=== PATIENT | male | born 1950 | race Caucasian/White ===

== ENCOUNTER 2020-05-19 13:28 | Outpatient (REF) | payer OTHER, SELFPAY ==
[2020-05-19 14:16] LABS: ALT 31 U/L (16-63); AST 49 U/L (15-37); Albumin 4.2 g/dL (3.4-5.0); Alkaline Phosphatase 82 U/L (46-116); Anion Gap 7.5 mmol/L (3-11); BUN 12 mg/dL (7-18); Bilirubin, Total 0.9 mg/dL (0.2-1.0); CO2 28.5 mmol/L (21.0-32.0); CREATININE 1.26 mg/dL (0.70-1.30); Calcium 8.7 mg/dL (8.5-10.1); Calculated LDL 92 mg/dL (<100); Chloride 103 mmol/L (98-107); Cholesterol 176 mg/dL (<200); Estimated GFR 57.08 (mL/min/1.73m2); Glucose 103 mg/dL (74-106); HDL Cholesterol 31 mg/dL (40-60); Sodium 139 mmol/L (136-145); Total Protein 7.4 g/dL (6.4-8.2); Triglyceride 269 mg/dL (<150)
== END 2020-05-19 13:48 ==
LOC: NCHCN 13:28
PROVIDERS: Visit Provider Family Medicine
DX: E78.1 Pure hyperglyceridemia (principal); E78.6 Lipoprotein deficiency; Z00.00 Encounter for general adult medical examination without abnormal findings
CPT/HCPCS: 80053; 80061

== ENCOUNTER 2020-10-03 15:26 | Outpatient (REF) | payer OTHER, SELFPAY ==
[2020-10-03 14:22] LABS: ALT 31 U/L (16-63); AST 60 U/L (15-37); Albumin 4.2 g/dL (3.4-5.0); Alkaline Phosphatase 91 U/L (46-116); Bilirubin, Direct 0.3 mg/dL (0.0-0.2); Bilirubin, Total 1.6 mg/dL (0.2-1.0); Total Protein 7.5 g/dL (6.4-8.2)
[2020-10-03 14:33] LABS: Calculated LDL 115 mg/dL (<100); Cholesterol 194 mg/dL (<200); HDL Cholesterol 38 mg/dL (40-60); Triglyceride 205 mg/dL (<150)
== END 2020-10-03 15:27 | disposition home or self-care (01) ==
LOC: NCHCN 15:26
PROVIDERS: Visit Provider Family Medicine
DX: R74.01 Elevation of levels of liver transaminase levels (principal); E78.1 Pure hyperglyceridemia; E78.6 Lipoprotein deficiency
CPT/HCPCS: 80061; 80076

== ENCOUNTER 2020-10-14 16:06 | Outpatient (REF) | payer OTHER, SELFPAY ==
[2020-10-14 20:46] LABS: ALT 27 U/L (16-63); AST 52 U/L (15-37); Albumin 4.1 g/dL (3.4-5.0); Alkaline Phosphatase 97 U/L (46-116); Bilirubin, Direct 0.2 mg/dL (0.0-0.2); Bilirubin, Total 0.9 mg/dL (0.2-1.0); Total Protein 7.5 g/dL (6.4-8.2)
== END 2020-10-14 16:07 | disposition home or self-care (01) ==
LOC: NCHCN 16:06
PROVIDERS: Visit Provider Family Medicine
DX: R74.01 Elevation of levels of liver transaminase levels (principal)
CPT/HCPCS: 80076

== ENCOUNTER 2021-06-06 14:58 | Outpatient (REF) | payer OTHER, SELFPAY ==
[2021-06-06 15:01] LABS: Hemoglobin A1C 5.6 % (<5.7)
[2021-06-06 15:04] LABS: ALT 28 U/L (16-63); AST 44 U/L (15-37); Albumin 4.1 g/dL (3.4-5.0); Alkaline Phosphatase 93 U/L (46-116); BUN 13 mg/dL (7-18); Bilirubin, Total 0.7 mg/dL (0.2-1.0); CREATININE 1.2 mg/dL (0.70-1.30); Calcium 8.9 mg/dL (8.5-10.1); Calculated LDL 119 mg/dL (<100); Chloride 105 mmol/L (98-107); Cholesterol 216 mg/dL (<200); Glucose 116 mg/dL (74-106); HDL Cholesterol 38 mg/dL (40-60); Sodium 141 mmol/L (136-145); Total Protein 7.6 g/dL (6.4-8.2); Triglyceride 297 mg/dL (<150)
== END 2021-06-06 14:59 | disposition home or self-care (01) ==
LOC: NCHCN 14:58
PROVIDERS: Visit Provider Family Medicine
DX: R74.01 Elevation of levels of liver transaminase levels (principal); R73.01 Impaired fasting glucose
CPT/HCPCS: 80053; 80061; 83036

== ENCOUNTER 2021-10-13 13:40 | Outpatient (REF) | payer MEDICARE, SELFPAY ==
[2021-10-13 20:23] LABS: HCT 43.1 % (40.0-50.0); HGB 15.2 g/dL (13.5-17.5); MCH 33.9 pg (27.0-33.0); MCHC 35.3 % (32.0-36.0); MCV 96 fL (80-95); MPV 10.2 fL (8.0-11.0); Platelet Count 222 10^3/uL (130-400); RBC 4.48 10^6/uL (4.36-5.78); RDW 12.3 % (11.8-14.1); RDW-SD 43.6 fL; WBC 6.12 10^3/uL (4.4-10.8)
[2021-10-13 20:25] LABS: ALT 20 U/L (16-63); AST 38 U/L (15-37); Albumin 4.4 g/dL (3.4-5.0); Alkaline Phosphatase 91 U/L (46-116); Anion Gap 7.4 mmol/L (3-11); BUN 17 mg/dL (7-18); Bilirubin, Total 0.9 mg/dL (0.2-1.0); CO2 28.6 mmol/L (21.0-32.0); CREATININE 1.4 mg/dL (0.70-1.30); Calcium 8.7 mg/dL (8.5-10.1); Chloride 104 mmol/L (98-107); Estimated GFR 50.25 (mL/min/1.73m2); Glucose 130 mg/dL (74-106); Potassium 4.1 mmol/L (3.5-5.1); Sodium 140 mmol/L (136-145); Total Protein 7.3 g/dL (6.4-8.2)
[2021-10-17 19:06] LABS: Folate 13.4 ng/mL (See Note); Vitamin B12 273 pg/mL (211-911)
== END 2021-10-13 13:41 | disposition home or self-care (01) ==
LOC: NCHCN 13:40
PROVIDERS: PCP Family Medicine; Visit Provider Family Medicine
DX: K76.0 Fatty (change of) liver, not elsewhere classified (principal)
CPT/HCPCS: 80053; 85027; 82607; 82746

== ENCOUNTER 2022-01-29 11:53 | Outpatient (REF) | payer MEDICARE, SELFPAY ==
[2022-01-29 15:15] LABS: ALT 36 U/L (16-63); AST 50 U/L (15-37); Albumin 4.3 g/dL (3.4-5.0); Alkaline Phosphatase 79 U/L (46-116); Anion Gap 5.2 mmol/L (3-11); BUN 11 mg/dL (7-18); Bilirubin, Total 1.6 mg/dL (0.2-1.0); CO2 30.8 mmol/L (21.0-32.0); CREATININE 1.2 mg/dL (0.70-1.30); Calcium 9.2 mg/dL (8.5-10.1); Calculated LDL 112 mg/dL (<100); Chloride 103 mmol/L (98-107); Cholesterol 189 mg/dL (<200); Estimated GFR 65.46 (mL/min/1.73m2); Glucose 101 mg/dL (74-106); HDL Cholesterol 38 mg/dL (40-60); Potassium 4.3 mmol/L (3.5-5.1); Sodium 139 mmol/L (136-145); Total Protein 7.5 g/dL (6.4-8.2); Triglyceride 196 mg/dL (<150); Vitamin B12 319 pg/mL (193-986)
== END 2022-01-29 11:54 | disposition home or self-care (01) ==
LOC: NCHCN 11:53
PROVIDERS: PCP Family Medicine; Visit Provider Family Medicine
DX: E53.8 Deficiency of other specified B group vitamins (principal); R74.01 Elevation of levels of liver transaminase levels; F10.10 Alcohol abuse, uncomplicated; E78.1 Pure hyperglyceridemia; E78.6 Lipoprotein deficiency
CPT/HCPCS: 80053; 80061; 82607

== ENCOUNTER 2022-06-07 15:49 | Outpatient (REF) | payer MEDICARE, SELFPAY ==
[2022-06-07 15:06] LABS: HCT 44.4 % (40.0-50.0); HGB 15.2 g/dL (13.5-17.5); MCH 32.6 pg (27.0-33.0); MCHC 34.2 % (32.0-36.0); MCV 95 fL (80-95); MPV 9.7 fL (8.0-11.0); Platelet Count 219 10^3/uL (130-400); RBC 4.66 10^6/uL (4.36-5.78); RDW 12.3 % (11.8-14.1); RDW-SD 43.2 fL; WBC 5.84 10^3/uL (4.4-10.8)
[2022-06-07 15:29] LABS: ALT 40 U/L (16-63); AST 61 U/L (15-37); Albumin 4.2 g/dL (3.4-5.0); Alkaline Phosphatase 82 U/L (46-116); BUN 12 mg/dL (7-18); CREATININE 1.4 mg/dL (0.70-1.30); Calcium 9.1 mg/dL (8.5-10.1); Chloride 106 mmol/L (98-107); Estimated GFR 54.41 (mL/min/1.73m2); Glucose 113 mg/dL (74-106); Potassium 4.1 mmol/L (3.5-5.1); Sodium 141 mmol/L (136-145); Total Protein 7.7 g/dL (6.4-8.2)
== END 2022-06-07 15:50 | disposition home or self-care (01) ==
LOC: NCHCN 15:49
PROVIDERS: PCP Family Medicine; Visit Provider Family Medicine
DX: K76.0 Fatty (change of) liver, not elsewhere classified (principal)
CPT/HCPCS: 80053; 85027

== ENCOUNTER 2023-04-04 16:03 | Outpatient (REF) | payer MEDICARE, SELFPAY ==
--- OUTSIDE RECORDS SUMMARY | 2023-04-04 16:05 | XMS_ITS | CCD ---
Author Name Unknown Address [address] [place] [address] [phone] Organization Unknown Address [address] [place], [place] [id number] Care Team Providers Care Railroad Car Repairman Name Role Phone WILLOW NEWTON Attending Physician [phone] Vital Signs Unknown or Not Available. Allergies Unknown or Not Available. Procedures Unknown or Not Available. History of Immunizations Unknown or Not Available. Problems Unknown or Not Available. Results Unknown or Not Available. Active Medications Unknown or Not Available. Medications Administered During Visit Unknown or Not Available. Encounters Encounter Diagnosis Diagnosis Code Start Date Fatty (change of) liver, not elsewhere clintifsmiley thomas [id number] 08/16/2021 Social History Smoking Status Code Start Date End Date Never smoker [id number] Patient Decision Aids Unknown or Not Available. Discharge Instructions You were admitted to [facility] on 08/16/2021 10:32 with a principal diagnosis of Fatty (change of) liver, not elsewhere classified You were discharged from [facility] on 08/16/2021 10:32 Should you have any questions prior to discharge, please contact a member of your healthcare team. If you have left the hospital and have any questions, please contact your primary care physician. Chief Complaint and Reason For Visit Unknown or Not Available. Function Status Unknown or Not Available. Plan of Care Unknown or Not Available. Referral/Transition of Care Unknown or Not Available.
[2023-04-04 21:31] LABS: ALT 28 U/L (16-63); AST 46 U/L (15-37); Alkaline Phosphatase 89 U/L (46-116); Anion Gap 6.9 mmol/L (3-11); BUN 11 mg/dL (7-18); Bilirubin, Total 0.9 mg/dL (0.2-1.0); CO2 28.1 mmol/L (21.0-32.0); CREATININE 1.2 mg/dL (0.70-1.30); Calcium 8.9 mg/dL (8.5-10.1); Calculated LDL 78 mg/dL (<100); Chloride 104 mmol/L (98-107); Cholesterol 179 mg/dL (<200); Estimated GFR 65.06 (mL/min/1.73m2); Glucose 97 mg/dL (74-106); HDL Cholesterol 33 mg/dL (40-60); Potassium 4.5 mmol/L (3.5-5.1); Sodium 139 mmol/L (136-145); Total Protein 7.8 g/dL (6.4-8.2); Triglyceride 340 mg/dL (<150)
== END 2023-04-04 16:04 | disposition home or self-care (01) ==
LOC: NCHCN 16:03
PROVIDERS: PCP Family Medicine; Visit Provider Family Medicine
DX: E78.6 Lipoprotein deficiency (principal); K76.0 Fatty (change of) liver, not elsewhere classified
CPT/HCPCS: 80053; 80061

== ENCOUNTER 2024-05-01 17:28 | Outpatient (REF) | payer MEDICARE, SELFPAY ==
--- OUTSIDE RECORDS SUMMARY | 2024-05-01 17:33 | XMS_ITS | Referral Summary ---
Author Organization [facility] Address [address] [place] [address] Care Team Providers Care Math And Sciences Department Chair Name Role Phone Daryn Garcia MD Primary Care Provide r Allergies No known active allergies Medications No known medications Active Problems Problem Noted Date Diagnosed Date Screening for colon cancer Social History Tobacco Use Types Packs/Day Years Used Date Smoking Tobacco: Never Smokeless Tobacco: Never Tobacco Cessation:Counseling Given: Not Answered Alcohol Use Standard Drinks/Week Comments Yes 14 (1 standard drink = 0.6 oz pu re alcohol) Sex and Gender Information Value Date Recorded Sex Assigned at Not on file Legal Sex Male 10:41 EDT Gender Identity Not on file Sexual Orientation Not on file Last Filed Vital Signs Vital Sign Reading Time Taken Comments Blood Pressure 141/86 12/18/2022 1221 EDT Pulse 65 12/18/2022 1221 EDT Temperature 36.4 ??C (97.6 ??F) 12/18/2022 1221 EDT Respiratory Rate 18 12/18/2022 1225 EDT Oxygen Saturation 99% 12/18/2022 1225 EDT Inhaled Oxygen Concentration - - Weight 90.7 kg (200 lb) 12/18/2022 0952 EDT Height 177.8 cm (5' 10) 12/18/2022 0952 EDT Body Mass Index 28.7 12/18/2022 0952 EDT Plan of Treatment Not on file Procedures Procedure Name Priority Date/Time Associated Diagnosis Comments COLONOSCOPY Routine 12/18/2022 10:15 EDT Screening for colon cancer from Last 3 Months or Most Recently Relevant to Health Maintenance Results * COLONOSCOPY (12/18/2022 10:15 EDT) Anatomical Region Laterality Modality Endoscopy Narrative 12/18/2022 10:15 EDT [facility] ?? [address] [place], [place] [address] ?? Patient Name ?JOSE BEARD Date of ?1950 Record Number ?[id number] Date/Time of Procedure ?12/18/2022, 10:15:00 AM Endoscopist ?Magdalene Ramos ?? Pbx Supervisor ? Referring Physician(s) ?? Daryn Garcia M.D. Anesthesiologist ?Jcarlos Rolbes Procedure Performed: COLONOSCOPY - Cold snare polypectomy Indications for Exam: Screening Colonoscopy. Instruments: ? [facility]-[id number] ([id number]) Medications: ?I was in continuous face to face attendance during the administration of moderate sedation services that were monitored by an independent trained observer who had no other duties during the procedure. Per Anesthesia ? Visualization: ? Good ?Tolerance: Good ?Complications: None ? Extent of Exam: ?cecum ? Limitations: ?None Procedure Technique: A physical exam was performed. Informed consent was obtained from the patient after explaining all the risks (perforation, bleeding, infection and adverse effects to the medicine) , benefits and alternatives to the procedure which the patient appeared to understand and so stated. The patient was connected to monitoring devices and placed in the left lateral postion, continuous oxygen was provided with a nasal cannula. IV medications were administered by an Anesthesiologist through indwelling cannula. After anesthesia was achieved a digital exam was performed and ??the colonoscope was introduced into the rectum and advanced under direct visualzation to the cecum. The ??was identified by visual landmarks .The scope was subsequently removed slowly while carefully examining the color, texture, anatomy, and integrity of the mucosa on the way out. The patient was subsequently transferred to the recovery area in satisfactory condition. The following procedure was performed and findings noted: Findings: Normal rectal exam. ??Normal colon mucosa with scattered diverticulosis. ??Two polyps found in the cecum and removed with a snare, no cautery. ??Lastly another polyp found at the splenic flexure and removed similarily. Endoscopic Diagnosis: Colon polyps Recommendations: Repeat colonoscopy in 5 years if polyps are adenomatous, 10 years if hyperplastic.. Sedation Start: 11:15:05 AM ?? Sedation End: 11:46:14 AM Signature: Mason MilanCiNkolas This note was electronically signed on 12/18/2022 11:50:58 AM By Magdalene DixonCNikolas Daryn Garcia MD GI PROCEDURE ORDERABL ES Final Result from Last 3 Months or Most Recently Relevant to Health Maintenance Insurance [employer] MEDICARE [employer] MEDICARE Care Teams Math And Sciences Department Chair Relationship Specialty Start Date End Date Daryn Garcia MD [address] [facility] [address] [place] [address] PCP - General 10/05/22
--- OUTSIDE RECORDS SUMMARY | 2024-05-01 17:33 | XMS_ITS | Encounter Summary ---
Author Organization [facility] Address [address] [place] [address] Care Team Providers Care Grill Associate Name Role Phone Yamel Garcia MD Primary Care Provide r Reason for Visit * Auth/Cert (Routine) Specialty Diagnoses / Procedures Referred By Boy serrano Referred To Contact Referral ID Status Reason Start Date Expiration Date Visits Re quested Visits Authorized [id number] 1 1 Encounter Details Date Type Department Care Team (Late st Contact Info) Description 12/18/2022 11:10 EDT Anesthesia Event [facility] Endoscopy [address] [place], [place] [id number] Meliton Robles MD [address] [place] [address] Anesthesia Record Procedure Summary Procedure Name Responsible Anesthesiologist Anesthesia Start Time Anesthesia Stop Time COLONOSCOPY Meliton Robles MD 12/18/22 1110 11/28 06/21 1150 Events Date Time Event Comment 12/18/2022 1110 An Start The patient was re-evaluated immediately before moderate or deep sedation use, before anesthesia induction, or before the anesthesia procedure. 1110 An Start Data 1111 Anesthesia Ready 1146 an stop data 1150 Handoff to RN I completed my handoff to the receiving nurse during which we: 1. Identified the patient 2. Identified the responsible provider 3. Reviewed the pertinent medical history 4. Discussed the surgical course 5. Reviewed intra-op anesthesia management and issues during anesthesia 6. Set expectations for post-procedure period 7. Allowed opportunity for questions and acknowledgement of understanding. 1150 An Stop Meds Name Total ketAMINE 10 mg/mL vial 20 mg lidocaine 2% (PF) injection glass vial 5 0 mg midazolam 1 mg/mL 2 mL vial 2 mg propOFol (DIPRIVAN) injection 100 mg * Agents No agents on file. * Blood No blood administrations on file. Lines, Drains, and Airways Type Details Placement Removal Peripheral IV 12/18/22; 1007; 20; Posterior, Right; Hand; Inserted by RN; 1; None; 2% Chlorhexidine with IPA; 12/18/22; 1231; Discharged; No complications, Dressing applied, Catheter intact 12/18/22 1007 by Ailyn Beck RN 12/18/22 1231 by Laureen Early, EL documented in this encounter Social History Tobacco Use Types Packs/Day Years Used Date Smoking Tobacco: Never Smokeless Tobacco: Never Alcohol Use Standard Drinks/Week Comments Yes 14 (1 standard drink = 0.6 oz pu re alcohol) Sex and Gender Information Value Date Recorded Sex Assigned at Not on file Legal Sex Male 10:41 EDT Gender Identity Not on file Sexual Orientation Not on file documented as of this encounter OR Notes * Anesthesia Postprocedure Evaluation - Meliton Robles MD - 12/18/2022 1150 EDT Patient: Raciel Beard Vital signs were reviewed with the recovery nurse. Complete vitals history is available in the Epicflowsheets. Vitals Value Taken Time BP 12/18/22 1150 Temp 12/18/22 1150 Resp 12/18/22 1150 Pulse From Oximetry 12/18/22 1150 SpO2 12/18/22 1150 Heart Rate 12/18/22 1150 Last Pain Score - Numeric Pain Level (Scale 1-10): 0 Type of Anesthesia - MAC Anesthesia Post Evaluation Post-procedure vitals reviewed and are stable. Level of consciousness: awake Temperature status: normothermia Respiratory status: airway patent Cardiovascular status: acceptable Hydration status: adequate Nausea/Vomiting: none Pain management: adequate Post-Op Assessment: patient tolerated procedure well with no complications and patient satisfied with anesthesia care Patient participation: able to participate Disposition: outpatient/home Anesthesia Complications: No apparent anesthesia complications * Anesthesia Preprocedure Evaluation - Meliton Robles MD - 12/18/2022 0941 EDT Anesthesia Preprocedure Evaluation Patient Medical History, including Anesthesia History reviewed. Chart and Nursing Notes reviewed, including NPO status and Medication History. Additional ROS/History Findings: No current outpatient medications on file prior to encounter. No current facility-administered medications on file prior to encounter. No current outpatient medications on file. No current facility-administered medications for this encounter. Not on File No past medical history on file. Relevant Problems No relevant active problems No past surgical history on file. Past Anesthetics [x] None on file []No family history of allergic reactions to anesthesia Review of Systems SOCIAL HISTORY: Social History Tobacco Use Smoking Status Not on file Smokeless Tobacco Not on file Social History Substance and Sexual Activity Drug Use Not on file Social History Substance and Sexual Activity Alcohol Use Not on file No results found for: WBC, HGB, HCT, MCV, PLT No results found for: NA, K, KEXT, CL, CLEXT, CO2, CO2EXT No results found for: BUN No results found for: CREATININE, CREATININEEX No results found for: INR, PROTIME No results found for: PTT UPT: No results found for: PREGUR, PREGNANCYTE, HCGPREG COVID: [] None on file No results found for: COVIDUV Blood Type: No results found for: ABO, LABRH, LABANTI, SPECEXP EKG: [] N/A ECHO: [] N/A Cardiac Stress: [] N/A There were no vitals taken for this visit. Physical Exam Airway Mallampati: II TM distance: <3 FB Neck ROM: full Cardiovascular Rhythm: regular Rate: normal Dental Pulmonary Breath sounds clear to auscultation Abdominal - normal exam Anesthesia Plan ASA 2 Anesthesia Type - MAC Anesthesia plan and risks discussed. Informed consent obtained from patient. The preoperative history and physical which was performed within 30 days of this procedure, has been reviewed and the clinically appropriate elements of the physical examination have been repeated. There are no changes to the documented history and physical or, if so, such changes are documented inthis note documented in this encounter Plan of Treatment Not on file documented as of this encounter Visit Diagnoses Not on filedocumented in this encounter Administered Medications Inactive Administered Medications - up to 3 most recent administrations Medication Order MAR Action Action Date Dose Rate Site ketAMINE (KETALAR) IV injection vial intravenous, PRN, Starting on Sat12/18/22 at 1115, Until Sat12/18/22 at 1150, Routine, Anesthesia Intraprocedure Given 12/18/2022 11:15 EDT 20 mg lidocaine (PF) 20 mg/mL (2 %) injection intravenous, PRN, Starting on Sat12/18/22 at 1115, Until Sat12/18/22 at 1150, Routine, Anesthesia Intraprocedure Given 12/18/2022 11:15 EDT 50 mg midazolam (PF) (VERSED) injection intravenous, PRN, Starting on Sat12/18/22 at 1115, Until Sat12/18/22 at 1150, Routine, Anesthesia Intraprocedure Given 12/18/2022 11:15 EDT 2 mg propOFol (DIPRIVAN) injection intravenous, PRN, Starting on Sat12/18/22 at 1115, Until Sat12/18/22 at 1150, Routine, Anesthesia Intraprocedure Given 12/18/2022 11:42 EDT 20 mg Given 12/18/2022 11:32 EDT 20 mg Given 12/18/2022 11:30 EDT 20 mg documented in this encounter Care Teams Grill Associate Relationship Specialty Start Date End Date Yamel Garcia MD [address] [place] [id number] PCP - General 10/05/22 documented as of this encounter
--- OUTSIDE RECORDS SUMMARY | 2024-05-01 17:33 | XMS_ITS | Encounter Summary ---
Author Organization [facility] Address [address] [place] [address] Care Team Providers Care Management Engineer Name Role Phone Yamel Garcia MD Primary Care Provide r Reason for Visit * Radiology Services (Routine/Next Available) - Authorization Not Required Specialty Diagnoses / Procedures Referred By Conttrinidad serrano Referred To Contact Diagnoses Fatty (change of) liver, not elsewhere classified Procedures US LIVER WITH ELASTOGRAPHY Yamel Garcia MD [address] [place] [phone] Phone: tel: fax: [facility] [place] [facility] Referral ID Status Reason Start Date Expiration Date Visits Requested Visits Authorized [id number] Authorization Not Required 04/05/2023 1 1 Encounter Details Date Type Department Care Team (Latest Contact Info) Description 06/27/2023 8:00 EST - 06/27/2023 23:59 [facility] Hospital Encounter [facility] - [facility] Ultrasound [address] [place] [address] Discharge Disposition: Home or Self Care Social History Tobacco Use Types Packs/Day Years [...] on file documented as of this encounter Discharge Disposition Disposition Code Departure Means Destination Home or Self Care documented in this encounter Plan of Treatment Not on file documented as of this encounter Procedures Procedure Name Priority Date/Time Associated Diagnosis Comments US LIVER WITH ELASTOGRAPHY AND ABDOMEN LIMITED Routine 06/27/2023 8:48 EST Fatty (change of) liver, not elsewhere classified documented in this encounter Results * US LIVER WITH ELASTOGRAPHY AND ABDOMEN LIMITED (06/27/2023 8:48 EST) Anatomical Region Laterality Modality Abdomen, Body Ultrasound 06/27/2023 9:08 EST Addenda Addendum by Reji Andres MD on 07/12/2023 12:57 EDT Addendum: ADDENDUM: MEDICAL NECESSITY FOR LIVER ??ELASTOGRAPHY: ??To evaluate liver stiffness. Rule out compensated advanced chronic liver disease. [id number] Impressions 06/27/2023 9:08 EST Mild diffuse hepatic steatosis. Median hepatic stiffness: 4.62 kPa Liver Stiffness Value and Recommendations: Less than or equal to 5 kPA (1.3 m/s); high probability of being normal [id number] Narrative 06/27/2023 9:08 EST INDICATION: ??Hepatic steatosis w/ elevated LFT's;K76.0:Fatty (change of) liver, not elsewhere classified COMPARISON: None. RIGHT UPPER QUADRANT ULTRASOUND TECHNIQUE: Right upper quadrant abdominal ultrasound was performed with color Doppler imaging. FINDINGS: Pancreas: Visible portion of the pancreas is grossly unremarkable. Liver: Mild hepatic steatosis. No hepatic mass or duct dilatation. Gallbladder: Unremarkable. No stones, wall abnormality or pericholecystic fluid. Common Bile Duct: Normal caliber common bile duct. Right Kidney:Normal. No renal stone, focal renal lesion or hydronephrosis. IVC: Patent.. LIVER ELASTOGRAPHY TECHNIQUE: 11 liver stiffness measurements were obtained using [employer] E9 2D SWE Shear Wave Elastography using a C1-6 abdominal probe following the SRU guidelines. ?? FINDINGS: Median: 4.62 kPa, (1.24 m/sec) E IQR/Median: 12.5% (kPa </= 30%) V IQR/Median: 6.2% (m/s </= 15%) Procedure Note Reji Andres MD - 06/27/2023 INDICATION: Hepatic steatosis w/ elevated LFT's;K76.0:Fatty (change of)liver, not elsewhere classified COMPARISON: None. RIGHT UPPER QUADRANT ULTRASOUND TECHNIQUE: Right upper quadrant abdominal ultrasound was performed withcolor Doppler imaging. FINDINGS: Pancreas: Visible portion of the pancreas is grossly unremarkable. Liver: Mild hepatic steatosis. No hepatic mass or duct dilatation. Gallbladder: Unremarkable. No stones, wall abnormality or pericholecysticfluid. Common Bile Duct: Normal caliber common bile duct. Right Kidney:Normal. No renal stone, focal renal lesion orhydronephrosis. IVC: Patent.. LIVER ELASTOGRAPHY TECHNIQUE: 11 liver stiffness measurements were obtained using [employer] E9 2DSWE Shear Wave Elastography using a C1-6 abdominal probe following the SRUguidelines. FINDINGS: Median: 4.62 kPa, (1.24 m/sec) E IQR/Median: 12.5% (kPa </= 30%) V IQR/Median: 6.2% (m/s </= 15%) IMPRESSION Mild diffuse hepatic steatosis. Median hepatic stiffness: 4.62 kPa Liver Stiffness Value and Recommendations: Less than or equal to 5 kPA(1.3 m/s); high probability of being normal [id number] us Yamel Garcia MD IMG US ORDERABLES Brad cruz Result - Final documented in this encounter Visit Diagnoses Not on filedocumented in this encounter Care Teams Management Engineer Relationship Specialty Start Date End Date Yamel Garcia MD [address] [address] PCP - General 10/05/22 documented as of this encounter
--- OUTSIDE RECORDS SUMMARY | 2024-05-01 17:33 | XMS_ITS | Encounter Summary ---
Author Organization [facility] Address [address] [place] [address] Care Team Providers Care Diagnostic Technician Name Role Phone Yamel Garcia MD Primary Care Provide r Reason for Visit * Reason Onset Date Comments Biopsy Results 12/20/2022 Encounter Details Date Type Department Care Team (Late st Contact Info) Description 12/20/2022 Telephone [facility] - [facility] General Surgery [address] [place] [address] Magdalene Ramos MD [address] [facility] [address] [place] [address] Biopsy Results Social History Tobacco Use Types Packs/Day Years [...] on file documented as of this encounter Miscellaneous Notes * Telephone Encounter - Magdalene Ramos MD - 12/20/2022 0830 EDT Pt's polyps are tubular adenomas, therefore needs a colonoscopy in 5 years. Left message and asked patient to call back to verify receipt of the information. documented in this encounter Plan of Treatment Not on file documented as of this encounter Visit Diagnoses Not on filedocumented in this encounter Care Teams Diagnostic Technician Relationship Specialty Start Date End Date Yamel Garcia MD [address] [facility] [address] [place] [address] PCP - General 10/05/22 documented as of this encounter
--- OUTSIDE RECORDS SUMMARY | 2024-05-01 17:33 | XMS_ITS ---
Author Organization Unknown Address [address] [place] [phone] Phone Care Team Providers Care School Age Teacher Name Role Phone AMAN Shelley Attending Unavailable Results US ABD LIMITED ONE ORGAN - C ompleted: 08/16/2021 12:50 LOINC: RIGHT UPPER QUADRANT ULTRASO UND: There is no ascites. No gallstones nor gallbladder wall edema. Common hepatic duct is not dilated measuring 5-6 mm. Liver is hyperechoic indicating steatosis but there are no discrete focal hepatic lesions. No significant ultrasound findings in the pancreas and right kidney. Abdominal aorta exhibits normal diameter. IVC appears patent. IMPRESSION: 1. No evidence of cholelithiasis nor dilatation of biliary tree. 2. Hepatic steatosis. Correlation with appropriate hepatic blood work recommended. 3. No other significant right upper quadrant ultrasound findings and no ascites evident. Dictated by: BRANDEE WANG MD Transcribed by: GATO 08/16/21/15:24 [id number] Electronically Reviewed and Signed By: LORETO WANG MD 08/16/21 18:45 Copy for: AMAN Shelley via fax Copy for: [facility] HEALTH INFORMATION MGMT Social History Type Status Start Date End Date Code Code Syst em Smoking History Never smoker (Never Smoked) [id number] SNOMED CT Sex Male Hospital Discharge Instructions Should you have any questions prior to discharge, please contact a member of your healthcare team. If you have left the hospital and have any questions, please contact your primary care physician. Reason For Referral No Data Found Plan of Treatment US RIGHT UPPER QUAD 08/16/2021 Encounters Encounter Diagnosis Start Date Code Code Sys tem Fatty (change of) liver, not elsewhere classified 07/29 SNOMED-CT Personal Care Team Section Performer Name Performer Role Active Date Inactive Da te
--- OUTSIDE RECORDS SUMMARY | 2024-05-01 17:33 | XMS_ITS | Clinical Summary ---
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 Social History Tobacco Use Types Packs/Day Years [...] on file Sexual Orientation Not on file Obstetrics History Last Filed Vital Signs Vital Sign Reading [...] 28.7 12/18/2022 0952 EDT Plan of Treatment Health Maintenance Due Date Last Done Comments Hepatitis C Screen 1950 Fall Risk Screening 2017 COVID-19 Vaccine (2023- season) 2023 RSV Immunization ( o r 60+ Years) (1 - 1-dose 75+ series) 07/28/2027 Colonoscopy (Colon Cancer Screening) Discontinued 11/28 Colorectal Cancer Screening Discontinued Cologuard (Colon Cancer Screening) Discontinued FIT Test (Colon Cancer Screening) Discontinued Sigmoidoscopy (Colon Cancer Screening) Discontinued Procedures Procedure Name Priority Date/Time Associated Diagnosis Comments COLONOSCOPY Routine 12/18/2022 10:15 EDT Screening for colon cancer from Last 3 Months or Most Recently Relevant to Health Maintenance Results * COLONOSCOPY (12/18/2022 10:15 EDT) Anatomical Region Laterality Modality Endoscopy Narrative 12/18/2022 10:15 EDT [facility] ?? [address] [address] ?? Patient Name ?JOSE BEARD Date of ?1950 Record Number ?[id number] Date/Time of Procedure ?12/18/2022, 10:15:00 AM Endoscopist ?Magdalene Ramos ?? Qa Lead ? Referring Physician(s) ?? Daryn Garcia M.D. Anesthesiologist ?Jcarlos Robles Procedure Performed: COLONOSCOPY - Cold snare polypectomy Indications for Exam: Screening Colonoscopy. Instruments: ? [id number] ([id number]) Medications: ?I was in continuous face to [...] ?? Sedation End: 11:46:14 AM Signature: Mason Milan.A.C.S This note was electronically signed on 12/18/2022 11:50:58 AM By Magdalene SaucedoA.C.S Daryn Garcia MD GI PROCEDURE ORDERABL ES Final Result from Last 3 Months or Most Recently Relevant to Health Maintenance Insurance [employer] MEDICARE [employer] MED[employer]ARE Care Teams Echocardiograph Technician Relationship Specialty Start Date End Date Daryn Garcia MD [address] [place] [address] [address] [place] [address] PCP - General 10/05/22
--- OUTSIDE RECORDS SUMMARY | 2024-05-01 17:34 | XMS_ITS | Encounter Summary ---
Author Organization [facility] Address [address] [place] [address] Care Team Providers Care Tenter Name Role Phone Unknown, Provider MD Primary Care Provider Unava ilable Encounter Details Date Type Department Care Team (Late st Contact Info) Description 02/26/[address] [facility] - Main [place] [address] [place] [address] Lobito Banda MD [address] [place] [address] Social History Tobacco Use Types Packs/Day Years Used Date Smoking Tobacco: Never Assessed Sex and Gender Information Value Date Recorded Sex Assigned at Not on file Legal Sex Male 10:41 EDT Gender Identity Not on file Sexual Orientation Not on file documented as of this encounter Plan of Treatment Not on file documented as of this encounter Procedures Procedure Name Priority Date/Time Associated Diagnosis Comments SURGICAL PATHOLOGY Routine 02/26/2012 11 :50 EDT documented in this encounter Results * SURGICAL PATHOLOGY (02/26/2012 11:50 EDT) 02/26/2012 11:5 0 EDT 02/26/2012 14:55 EDT Narrative [facility] - 02/27/2012 11:30 EDT ----- ------- Name: JOSE BEARD ?: [birth year] ?Age/Sex: 68/M ?Unit#: [id number] ? Loc: [facility] ? Status: REG REF ?? Reg Date: 02/26/12 ? Pt.Phone Number: ? ----- ------- Specimen: [id number] ? STATUS: SOUT ?Spec Date:02/26/12 ? Physician Copies: ?Lobito Banda Tissues: A ?? Gastrointestinal Tract (PROXIMAL ASCENDING COLON) ?Kory Pettit ? CPT: 53916 ?? Units: ??1 ?FINAL DIAGNOSIS ? Colon, proximal ascending, biopsy; ? - No specific pathologic features. ? GROSS DESCRIPTION ? Received in [place]'s labeled with the patient's name and bx proximal ascending ? are three mucosal fragments ranging from 0.2 to 0.3 cm, e.s. 1. ??CP ?? PREOP DX/CLINICAL HISTORY ?Screening colonoscopy. Signed ____(signature on file)____ Khushbu Fan M.D. 02/27/12 By the signature above, the attending physician certifies that he/she has personally conducted a gross and/or microscopic examination of the described specimens and rendered or confirmed the above diagnosis. Test Performed by [facility], [address] [place] [address] Motor Overhauler: Khushbu Fan MD PHD ----- ------- Lobito Banda MD PATHOLOGY ORDERABLES Final Result [facility] documented in this encounter Visit Diagnoses Not on filedocumented in this encounter Care Teams Tenter Relationship Specialty Start Date End Date Unknown, Provider, PCP - General 01/18/16 10/04/22 documented as of this encounter
--- OUTSIDE RECORDS SUMMARY | 2024-05-01 17:34 | XMS_ITS | Encounter Summary ---
Author Organization [facility] Address [address] [place] [address] Care Team Providers Care Deboning Team Leader Name Role Phone Unknown, Provider MD Primary Care Provider Unava ilable Encounter Details Date Type Department Care Team (Late st Contact Info) Description 04/06/2011 Historical Results Only [facility] Lab - Main [place] [address] [place], [place] [id number] Kory Pettit, DO [address] [place] [address] Social History Tobacco Use Types Packs/Day Years [...] Date/Time Associated Diagnosis Comments SURGICAL PATHOLOGY Routine 04/06/2011 documented in this encounter Results * SURGICAL PATHOLOGY (04/06/2011) 04/06/2011 04/06/2011 19: 43 EST Narrative [facility] - 04/09/2011 12:19 EST ----- ------- Name: JOSE BEARD ?: [birth year] ?Age/Sex: 68/M ?Unit#: [id number] ? Loc: [facility] ? Status: REG REF ?? Reg Date: 04/06/11 ? Pt.Phone Number: ? ----- ------- Specimen: [id number] ? STATUS: SOUT ?Spec Date:04/06/11 ? Physician Copies: ?Kory Pettit ? Tissues: A ?? Skin, other than cyst (PUBIC AREA) ? CPT: 20835 ?? Units: ??1 ?FINAL DIAGNOSIS ? Skin of pubic area, biopsy; ? -Molluscum contagiosum. ? GROSS DESCRIPTION ? Received in formalin and labeled pedunculated lesion pubic area are two small ? fragments of brown skin 0.1 cm in diameter each. e.s. BT. ?? PREOP DX/CLINICAL HISTORY ? [facility] ?[facility] Information ? [facility] ?? Patients Phone# ??[phone] ?? [facility] Order# ? [id number] Signed ____(signature on file)____ Gilbert Neville M.D. 04/09/11 ?? By the signature above, the attending physician certifies that he/she has personally conducted a gross and/or microscopic examination of the described specimens and rendered or confirmed the above diagnosis. Test Performed by [facility] [place] [facility], [address] [place] [address] President Ceo & Founder: Khushbu Fan MD PHD ----- ------- us Kory Pettit DO PATHOLOGY ORDERABLES Final Re sult [facility] documented in this encounter Visit Diagnoses Not on filedocumented in this encounter Care Teams Deboning Team Leader Relationship Specialty Start Date End Date Unknown, Provider, PCP - General 01/18/16 10/04/22 documented as of this encounter
--- OUTSIDE RECORDS SUMMARY | 2024-05-01 17:34 | XMS_ITS | Encounter Summary ---
Author Organization [facility] Address [address] [place] [address] Care Team Providers Care Compensation Supervisor Name Role Phone Daryn Garcia MD Primary Care Provide r Reason for Referral * Referral (Routine/Next Available) - Authorization Not Required Specialty Diagnoses / Procedures Referred By Boy serrano Referred To Contact General Surgery Diagnoses Screening for colon cancer Procedures COLONOSCOPY Daryn Garcia MD [address] [place] [address] Phone: tel: fax: [facility] General Surgery [address] [place] [address] Phone: tel: fax: Referral ID Status Reason Start Date Expiration Date Visits Requested Visits Authorized [id number] Authorization Not Required 10/05/2022 1 1 Reason for Visit * Auth/Cert (Routine) Specialty Diagnoses / Procedures Referred By Boy serrano Referred To Contact Referral ID Status Reason Start Date Expiration Date Visits Re quested Visits Authorized [id number] 1 1 Encounter Details Date Type Department Care Team (Latest Contact Info) Description 12/18/2022 9:40 EDT - 12/18/2022 23:59 EDT Hospital Encounter [facility] Endoscopy [address] [place] [address] Magdalene Ramos MD [address] [facility] [address] [place] [phone] Meliton Robles MD [address] [place] [address] Screening for colon cancer Discharge Disposition: Home or Self Care Social [...] on file documented as of this encounter Last Filed Vital Signs Vital Sign Reading [...] Body Mass Index 28.7 12/18/2022 0952 EDT documented in this encounter Discharge Disposition Disposition Code Departure Means Destination Home or Self Care documented in this encounter H&P Notes * Magdalene Ramos MD - 12/18/2022 1015 EDT Endoscopy Sedation for Procedure History & Physical Date: 12/18/2022 Time: 11:14 Location: [facility] Endoscopy Planned Procedure: Colonoscopy Chief Complaint/Indications for Procedure: Screening for colon cancer History Previous Complication with Sedation and/or Anesthesia? No Allergies: No Known Allergies Current Medications: No current outpatient medications on file. Current Facility-Administered Medications Medication Route Frequency ??? sodium chloride 0.9 % (NS) infusion intravenous PRN Or ??? lactated ringers (LR) infusion intravenous PRN ??? lactated ringers (LR) infusion intravenous PACU CONTINUOUS ??? lidocaine (PF) 10 mg/mL (1 %) injection 2 mg intradermal PRN ??? lidocaine (PF) 10 mg/mL (1 %) injection 2 mg intradermal PRN ??? ondansetron (PF) (ZOFRAN) injection 4 mg intravenous PRN ??? ondansetron (PF) (ZOFRAN) injection 4 mg intravenous Once PRN ??? sodium chloride 0.9 % (flush) flush 3 mL intravenous PRN ??? sodium chloride 0.9 % (flush) flush 5 mL intravenous Q8H Past Medical History: Past Medical History: Diagnosis Date ??? 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 KNEE SURGERY Right Miniscus repair Social History Tobacco Use ??? Smoking status: Never ??? Smokeless tobacco: Never Substance Use Topics ??? Alcohol use: Yes Alcohol/week: 14.0 standard drinks of alcohol Types: 14 Shots of liquor per week Family History: History reviewed. No pertinent family history. Review of Systems as pertinent: Physical Exam Vital Signs: BP 132/88 (BP Cuff Location: Left arm) Temp 36.7 ??C (98.1 ??F) (Oral) Resp 13 Ht 177.8 cm (70) Wt 90.7 kg (200 lb) SpO2 97% BMI 28.70 kg/m?? Heart Examination: Cardiac Regularity: Regular Respiratory Examination: Respiratory Pattern: Regular Breath Sounds Right: Clear Breath Sounds Left: Clear Abdominal Examination: Soft, non-tender, bowel sounds normal, no masses, no organomegaly Additional physical exam related to the proposed procedure, patient activity, disease state and treatment as pertinent: Assessment Previous complications with sedation or anesthesia?: No Airway Concerns: None/NA Anesthesia Classification: ASA 2 Plan: Proceed with sedation for procedure Fasting Time: Date of Last Liquid: 12/18/22 Time of Last Liquid: 0500 Date of Last Solid: 12/17/22 Time of Last Solid: 0800 Patient Appropriate Candidate for Planned Sedation?: Yes Magdalene Ramos MD 12/18/2022 11:14 documented in this encounter Plan of Treatment Not on file documented as of this encounter Procedures Procedure Name Priority Date/Time Associated Diagnosis Comments ECG REPORT - SCANNED 12/19/2022 12:25 EDT SURGICAL PATHOLOGY Routine 12/18/2022 11 :22 EDT Screening for colon cancer COLONOSCOPY Routine 12/18/2022 10:15 EDT Screening for colon cancer documented in this encounter Results * ECG REPORT - SCANNED (12/19/2022 12:25 EDT) 12/19/2022 12:2 5 EDT us Scan 2 Insurance Policy Clerk PROCEDURE/MINOR SURGICAL OR DERABLES Final Result * SURGICAL PATHOLOGY (12/18/2022 11:22 EDT) Note to Patient The following pathology results have been interpreted by your pathologist and may be available to you before your health provider has had the opportunity to review them. Please allow time for your provider to receive these results and explore management options, if applicable. 12/19/2022 16:32 [facility] Final Diagnosis A. COLON, CECUM, POLYPS X2, BIOPSIES: - Tubular adenoma(s), fragments. B. COLON, SPLENIC FLEXURE, POLYP, BIOPSY: - Tubular adenoma. 12/19/2022 16:32 [facility] Attestation There was significant resident/divine w involvement in the diagnostic evaluation of this case. By the signature below, the attending physician certifies that they have personally conducted a gross and/or microscopic examination of the described specimens and rendered or confirmed the above diagnosis. 12/19/2022 16:32 [facility] at 1632 Clinical History Screening for colon cancer 12/19/2022 16:32 [facility] Gross Description A. The specimen is received in formalin labeled with ? Jose [place]? and ? cecum polyp x2? are 3 mucosal fragments that range in size from 0.1 x 0.1 x 0.1 cm up to 0.2 x 0.3 x 0.9 cm. The specimen is entirely submitted in 1 cassette. B. The specimen is received in formalin labeled with ? Jose Beard? and ? polyp @ splenic flexure? is a mucosal fragment that measures up to 0.2 x 0.3 x 0.4 cm. The specimen is entirely submitted in 1 cassette. HERMELINDO ESCUDERO 12/18/2022 15:26 12/19/2022 16:32 EDT [facility] Resident/Divine w: Andressa Christiansen MD Poljak, Dijana, MD 12/19/2022 16:32 EDT [facility] Performing Lab [facility] 12/19/2022 16:32 EDT [facility] Scanned Images 12/19/2022 16:32 EDT [facility] Tissue POLYP OF COLON / Unknown 12/18/2022 11:22 EDT 12/18/2022 15:16 EDT Tissue specimen (specimen) POLYP OF COLON / Unknown 12/18/2022 11:37 EDT 12/18/2022 15:16 EDT us Magdalene Ramos MD PATHOLOGY ORDERABLES F inal Result Performing Organization Address City/State/[facility] Co de Phone Number [facility] [address] [place] [address] * COLONOSCOPY (12/18/2022 10:15 EDT) Anatomical Region Laterality Modality Endoscopy Narrative 12/18/2022 10:15 EDT ?? [place] [address] ?? Patient Name ?JOSE BEARD Date of ?1950 Record Number ?[id number] Date/Time of Procedure ?12/18/2022, 10:15:00 AM Endoscopist ?Magdalene Ramos ?? Field Artillery Radar Operator ? Referring Physician(s) ?? Daryn Garcia M.D. Anesthesiologist ?Jcarlos Robles Procedure Performed: COLONOSCOPY - Cold snare polypectomy Indications for Exam: Screening Colonoscopy. Instruments: ? [id number] ([id number]) Medications: ?I was in continuous face to [...] signed on 12/18/2022 11:50:58 AM By Magdalene Ramos M.D., F.A.C.S Daryn Garcia MD GI PROCEDURE ORDERABL ES Final Result documented in this encounter Visit Diagnoses Diagnosis Screening for colon cancer Special screening for malignant neoplasms, colon documented in this encounter Administered Medications Inactive Administered Medications - up to 3 most recent administrations Medication Order MAR Action Action Date Dose Rate Site lactated ringers (LR) infusion 30 mL/hr, intravenous, PRN, Starting on Sat12/18/22 at 0948, Until Sat12/20/22 at 0209, Routine, Preprocedure New Bag 12/18/2022 10:08 EDT 30 mL/hr 30 mL /hr documented in this encounter Orders Medications Ordered That Brendan ht Not Have Been Administered Count Last Ordered Date First Ordered Date lactated ringers (LR) infusion 1 12/18/2022 lidocaine (PF) 10 mg/mL (1 % ) injection 2 mg 2 12/18/2022 ondansetron (PF) (ZOFRAN) injection 4 mg 2 12/18/2022 sodium chloride 0.9 % (flush) flush 3 mL 1 12/18/2022 sodium chloride 0.9 % (flush) flush 5 mL 1 12/18/2022 sodium chloride 0.9 % (NS) infusion 1 12/18 Discharge Count Last Ordered Date First Orde red Date DISCHARGE PATIENT 1 12/18/2022 documented in this encounter Care Teams Compensation Supervisor Relationship Specialty Start Date End Date Daryn Garcia MD 4 [facility] [address] [place] [address] PCP - General 10/05/22 documented as of this encounter
--- OUTSIDE RECORDS SUMMARY | 2024-05-01 17:34 | XMS_ITS | Encounter Summary ---
Author Organization [facility] Address [address] [place] [address] Care Team Providers Care Grants Specialist Name Role Phone Daryn Garcia MD Primary Care Provide r Reason for Referral * Referral (Routine/Next Available) - Authorization Not Required Specialty Diagnoses / Procedures Referred By Boy serrano Referred To Contact General Surgery Diagnoses Screening for colon cancer Procedures COLONOSCOPY Daryn Garcia MD 4 [facility] [address] [place] [address] Phone: tel: fax: [facility] General Surgery [address] [place] [address] Phone: tel: fax: Referral ID Status Reason Start Date Expiration Date Visits Requested Visits Authorized [id number] Authorization Not Required 10/05/2022 1 1 Encounter Details Date Type Department Care Team (Latest Contact Info) Description 10/05/2022 Transcribe Orders [facility] General Surgery [address] [place] [id number] Daryn Garcia MD 4 [facility] [address] [place] [phone] Screening for colon cancer (Primary Dx) Social History Tobacco Use Types Packs/Day Years Used Date Smoking Tobacco: Never Assessed Sex and Gender Information Value Date Recorded Sex Assigned at Not on file Legal Sex Male 10:41 EDT Gender Identity Not on file Sexual Orientation Not on file documented as of this encounter Plan of Treatment Not on file documented as of this encounter Results * COLONOSCOPY (12/18/2022 10:15 EDT) Anatomical Region Laterality Modality Endoscopy Narrative 12/18/2022 10:15 EDT [facility] ?? [address], [place], [place] [address] ?? Patient Name ?JOSE BEARD Date of ?1950 Record Number ?[id number] Date/Time of Procedure ?12/18/2022, 10:15:00 AM Endoscopist ?Magdalene Ramos ?? Loop Cutter ? Referring Physician(s) ?? Daryn Garcia M.D. Anesthesiologist ?Jcarlos Robles Procedure Performed: COLONOSCOPY - Cold snare polypectomy Indications for Exam: Screening Colonoscopy. Instruments: ? [id number] ([id number]) Medications: ?I was in continuous face to [...] ?? Sedation End: 11:46:14 AM Signature: Mason MilanA.C.Boris This note was electronically signed on 12/18/2022 11:50:58 AM By Magdalene SaucedoA.C.S us Daryn Garcia MD GI PROCEDURE ORDERABL ES Final Result documented in this encounter Visit Diagnoses Diagnosis Screening for colon cancer- Primary Special screening for malignant neoplasms, colon Screening for colon cancer Special screening for malignant neoplasms, colon documented in this encounter Care Teams Grants Specialist Relationship Specialty Start Date End Date Daryn Garcia MD [address] [place] [id number] PCP - General 10/05/22 documented as of this encounter
--- OUTSIDE RECORDS SUMMARY | 2024-05-01 17:34 | XMS_ITS | Encounter Summary ---
Author Organization [facility] Address [address] [place] [address] Care Team Providers Care Executive Account Manager Name Role Phone Unknown, Provider Primary Care Provider Yamel Akins MD Primary Care Provide r Encounter Details Date Type Department Care Team (Late st Contact Info) Description 10/17/[address] [facility] Pathology & Laboratory Medicine - [address] [address] Outr Resulting Lab, Provider Social History Tobacco Use Types Packs/Day Years [...] Procedure Name Priority Date/Time Associated Diagnosis Comments FOLATE Routine 10/13/2021 13:30 EDT VITAMIN B12 Routine 10/13/2021 13:30 EDT documented in this encounter Results * FOLATE (10/13/2021 13:30 EDT) Folate 13.4 See Note ng/mL 10/17/2021 19:00 EDT [facility] Comment: Reference Ranges for Folate: Deficient: ?< 3.4 ng/mL Indeterminate: ??3.4 - 5.4 ng/mL Normal: ? > 5.4 ng/mL The results of this assay can be falsely elevated due to the consumption of Biotin. Blood VENOUS BLOOD / Unknown 10/13/2021 13:30 EDT 10/17/2021 17:23 EDT us Provider Outr Resulting Lab CHEMISTRY & BLOOD GA S ORDERABLES Final Result Performing Organization Address City/[facility]/ZIP Co de Phone Number [facility] [address] [place] [address] * VITAMIN B12 (10/13/2021 13:30 EDT) Vitamin B12 273 211 - 911 pg/mL 10/17/2021 19:01 EDT [facility] Blood VENOUS BLOOD / Unknown 10/13/2021 13:30 EDT 10/17/2021 17:23 EDT us Provider Outr Resulting Lab CHEMISTRY & BLOOD GA S ORDERABLES Final Result Performing Organization Address City/[facility] de Phone Number [facility] [address] [place] [address] documented in this encounter Visit Diagnoses Not on filedocumented in this encounter Care Teams Executive Account Manager Relationship Specialty Start Date End Date Unknown, Becky, PCP - General 01/18/16 10/04/22 Yamel Garcia MD 4 [facility] [address] [place] [address] PCP - General 10/05/22 documented as of this encounter
[2024-05-01 21:54] LABS: ALT 20 U/L (16-63); AST 48 U/L (15-37); Albumin 4.3 g/dL (3.4-5.0); Alkaline Phosphatase 102 U/L (46-116); Anion Gap 5.8 mmol/L (3-11); BUN 17 mg/dL (7-18); Bilirubin, Total 1.07 mg/dL (0.2-1.0); CO2 30.2 mmol/L (21.0-32.0); CREATININE 1.4 mg/dL (0.70-1.30); Calcium 9.2 mg/dL (8.5-10.1); Calculated LDL 113 mg/dL (<100); Chloride 106 mmol/L (98-107); Cholesterol 204 mg/dL (<200); Estimated GFR 53.74 (mL/min/1.73m2); Glucose 94 mg/dL (74-106); HDL Cholesterol 46 mg/dL (40-60); Potassium 4.6 mmol/L (3.5-5.1); Sodium 142 mmol/L (136-145); Total Protein 8.2 g/dL (6.4-8.2); Triglyceride 229 mg/dL (<150)
== END 2024-05-01 17:29 | disposition home or self-care (01) ==
LOC: NCHCN 17:28
PROVIDERS: PCP Family Medicine; Visit Provider Family Medicine
DX: K70.0 Alcoholic fatty liver (principal); Z00.00 Encounter for general adult medical examination without abnormal findings
CPT/HCPCS: 80053; 80061